=== PATIENT | female | born 1985 | race Caucasian/White ===

== ENCOUNTER → 2021-10-06 13:55 | Outpatient (BNVA) | payer MEDICAID, SELFPAY | PROVIDERS: Visit Provider Podiatrist Foot & Ankle Surgery | DX: M79.672 Pain in left foot (principal); M21.612 Bunion of left foot; M72.2 Plantar fascial fibromatosis | CPT/HCPCS: 73630; 99203 ==

== ENCOUNTER 2022-10-27 11:28 | Emergency (ER) | payer MEDICAID, SELFPAY ==
[2022-10-27 11:32] VITALS: BP 135/78; PULSE 65; RESP 15; TEMP 36.6; O2SAT 97
[2022-10-27 14:09] LABS: Basophils % 0.6 %; Eosinophils # 0.3 10^3/uL (0.0-0.8); Eosinophils % 4.9 %; Hematocrit 43.5 % (36-47); Lymphocytes % 39.3 %; Mean Corpuscular HGB Conc 32.4 g/dL (30-55); Mean Corpuscular Hemoglobin 30.4 pg (27-33); Mean Corpuscular Volume 93.8 fl (85-98); Monocytes # 0.3 10^3/uL (0.2-0.9); Monocytes % 5.7 %; Neutrophils # 2.47 10^3/uL (1.8-7.7); Neutrophils % 48.5 %; Nucleated Red Blood Cells % 0 %; Platelet Count 273 10^3/cmm (157-399); Red Blood Count 4.64 10^6/uL (3.85-5.65); Red Cell Distribution Width 11.4 % (12.1-15.1); White Blood Count 5.09 10^3/uL (3.29-11.43)
[2022-10-27 14:28] LABS: Alanine Aminotransferase 31 U/L (0-33); Albumin Level 4.4 g/dL (3.5-5.2); Alkaline Phosphatase 73 U/L (35-105); Anion Gap 13.4 (5-19); Aspartate Amino Transferase 19 U/L (0-32); Blood Urea Nitrogen 12 mg/dL (6-20); Calcium 9.2 mg/dL (8.5-10.5); Carbon Dioxide 27 mmol/L (22-29); Chloride 100 mmol/L (98-107); Creatinine Clr Calc Pharmacy 134.3799; Glomerular Filtration Rate 113.8 mL/min (90-130); Glucose 84 mg/dL (65-115); HCG, Serum Qual Negative (Negative); Lipase 64 U/L (13-60); Osmolality Calculated 281 mOsm/kg (285-295); Potassium 4.4 mmol/L (3.5-5.1); Sodium 136 mmol/L (136-145); Total Bilirubin 0.2 mg/dL (0.15-1.2); Total Protein 7.4 g/dL (6.6-8.7)
[2022-10-27] MEDS: ondansetron 2 mg/ML SDV 2 mL 4 MG IVP (15:13)
[2022-10-27] MEDS: sodium chloride 0.9% 1,000 ML 999 ML IV (15:14)
[2022-10-27 15:27] VITALS: BP 135/84; PULSE 50; RESP 16; O2SAT 100
--- NOTE | 2022-10-27 15:31 | ED_ITS ---
HPI - Abdominal Pain General: Chief Complaint: Abdominal Pain Stated Complaint: possible gallbladder issue Time Seen by Provider: 10/27/22 14:03 History of Present Illness: Patient presents to the ER with complaints of right upper quadrant pain. Patient states she has gallbladder issues and needs it out. Patient states she talk with Dr. Zeng and she just left a consult with him and he told her she needed to have her gallbladder removed VICKIE and his next date of the surgery calendar was 9 days from now and that she could not wait. She says he told her to go to the ER and still we do for her. Review of Systems General: Reports: 10 or more systems reviewed and unremarkable except in HPI and below PFSH ED PFSH: Social History Smoking and tobacco status: never smoked Physical Exam Const: COMMON NORMALS: no acute distress, average body habitus, patient oriented x3, no limitations, healthy appearing and well nourished HENMT: COMMON NORMALS: normocephalic, atraumatic, hearing grossly normal bilaterally, external ears normal, Normal external nose present and moist oral mucous membranes HEAD & SCALP: normocephalic and atraumatic NOSE: Normal external nose present EXTERNAL EAR: Yes external ears normal Eye: COMMON NORMALS: Equal, round and reactive pupils present, EOMs intact bilaterally, conjunctivae normal and no scleral icterus CONJUNCTIVA: Yes conjunctivae normal PUPIL: Yes Equal, round and reactive pupils present Neck/C-Spine: COMMON NORMALS: full ROM, no lymphadenopathy, supple, no meningeal signs, no JVD and Thyroid normal THYROID: Thyroid normal Chest: COMMONS NORMALS: normal inspection of the chest and normal palpation of entire chest wall Resp: COMMON NORMALS: normal respiratory effort, No retractions, No use of accessory muscles and clear to auscultation bilaterally AUSCULTATION: clear to auscultation bilaterally Cardio: COMMON NORMALS: no JVD, regular rate, regular rhythm, S1 normal heart sound present, S2 normal heart sound present, No gallops present (Cardio), No clicks present (Cardio), No murmurs present (Cardio) and No rub (Cardio) RATE: regular rate RHYTHM: regular rhythm HEART SOUNDS: S1 normal heart sound present and S2 normal heart sound present GI: OTHER: Tender to palpate right upper quadrant, no rebound guarding rigidity organomegaly or masses noted. Positive bowel sounds in all 4 quadrants Neuro: COMMON NORMALS: patient oriented x3 MENINGEAL SIGNS: Yes no meningeal signs Course Vital Signs: Vital signs: Vital Signs Temperature 97.9 F 10/27/22 11:32 Pulse Rate 50 L 10/27/22 15:27 Respiratory Rate 16 10/27/22 15:27 Blood Pressure 135/84 10/27/22 16:00 Pulse Oximetry 99 10/27/22 16:00 Oxygen Delivery Me thod Room Air 10/27/22 15:27 MDM - Abdominal Pain Medical Decision Making Patient presents to the ER with right upper quadrant pain and was seen by Dr. Zeng and told she needed her gallbladder out. Dr. Nova notes was reviewed with Dr. Lomas who came to the ER and evaluated the patient. He did not feel that she had an acute cholecystitis at this time and offered to see her in the clinic later on this week but they declined that and said they would just follow-up with Dr. Pearce. She will be discharged from the ER. Differential Diagnosis Likely abdominal pain; Unlikely acute appendicitis, calculus of kidney, constipation, diverticulitis, endometriosis, gastroenteritis, pancreatitis or small bowel obstruction Medical Records I reviewed the patient's medical records. Lab Data I reviewed the patient's lab results. 10/27/22 13:55 10/27/22 13:55 Labs/Radiology: Laboratory Results WBC 5.09 10^3/uL (3.29-11.43) 10/27/22 13:55 RBC 4.64 10^6/uL (3.85-5.65) 10/27/22 13:55 Hgb 14.10 g/dL (11.27-16.99) 10/27/22 13:55 Hct 43.5 % (36-47) 10/27/22 13:55 MCV 93.8 fl (85-98) 10/27/22 13:55 MCH 30.4 pg (27-33) 10/27/22 13:55 MCHC 32.4 g/dL (30-55) 10/27/22 13:55 RDW 11.4 % (12.1-15.1) L 10/27/22 13:55 Plt Count 273 10^3/cmm (157-399) 10/27/22 13:55 MPV 9.0 fL (7.4-10.4) 10/27/22 13:55 Neut % (Auto) 48.5 % 10/27/22 13:55 Lymph % (Auto) 39.3 % 10/27/22 13:55 [place] % (Auto) 5.7 % 10/27/22 13:55 Eos % (Auto) 4.9 % 10/27/22 13:55 Baso % (Auto) 0.6 % 10/27/22 13:55 Neut # (Auto) 2.47 10^3/uL (1.8-7.7) 10/27/22 13:55 Lymph # (Auto) 2.0 10^3/uL (0.8-4.8) 10/27/22 13:55 [place] # (Auto) 0.3 10^3/uL (0.2-0.9) 10/27/22 13:55 Eos # (Auto) 0.3 10^3/uL (0.0-0.8) 10/27/22 13:55 Baso # (Auto) 0.0 10^3/uL (0.0-0.1) 10/27/22 13:55 Nucleated RBC % (auto) 0 % 10/27/22 13:55 Nucleated RBCs # 0.0 /100WBC 10/27/22 13:55 Sodium 136 mmol/L (136-145) 10/27/22 13:55 Potassium 4.4 mmol/L (3.5-5.1) 10/27/22 13:55 Chloride 100 mmol/L (98-107) 10/27/22 13:55 Carbon Dioxide 27 mmol/L (22-29) 10/27/22 13:55 Anion Gap 13.4 (5-19) 10/27/22 13:55 BUN 12 mg/dL (6-20) 10/27/22 13:55 Creatinine 0.6 mg/dL (0.5-0.9) 10/27/22 13:55 GFR Calculation 113.8 mL/min (90-130) 10/27/22 13:55 Glucose 84 mg/dL (65-115) 10/27/22 13:55 Calculated Osmolality 281 mOsm/kg (285-295) L 10/27/22 13:55 Calcium 9.2 mg/dL (8.5-10.5) 10/27/22 13:55 Total Bilirubin 0.2 mg/dL (0.15-1.2) 10/27/22 13:55 AST 19 U/L (0-32) 10/27/22 13:55 ALT 31 U/L (0-33) 10/27/22 13:55 Alkaline Phosphatase 73 U/L (35-105) 10/27/22 13:55 Total Protein 7.4 g/dL (6.6-8.7) 10/27/22 13:55 Albumin 4.4 g/dL (3.5-5.2) 10/27/22 13:55 Globulin 3.0 g/dL (1.3-4.6) 10/27/22 13:55 Lipase 64 U/L (13-60) H 10/27/22 13:55 HCG, Qual Negative (Negative) 10/27/22 13:55 Urine Color Yellow (Yellow) 10/27/22 15:27 Urine Appearance Clear (CLEAR) 10/27/22 15:27 Urine pH 7 (5-7) 10/27/22 15:27 Ur Specific [place] 1.005 (1.005-1.030) 10/27/22 15:27 Urine Protein Neg (Negative) 10/27/22 15:27 Urine Glucose (UA) Norm (Normal) 10/27/22 15:27 Urine Ketones Negative (Negative) 10/27/22 15:27 Urine Blood Neg (Negative) 10/27/22 15:27 Urine Nitrate Negative (Negative) 10/27/22 15:27 Urine Bilirubin Neg (Negative) 10/27/22 15:27 Urine Urobilinogen Norm mg/dL (Negative) 10/27/22 15:27 Ur Leukocyte Esterase Trace (Negative) H 10/27/22 15:27 Urine RBC 0-4 /hpf (0-2) H 10/27/22 15:27 Urine WBC 0-4 /hpf (0-5) H 10/27/22 15:27 Ur Squamous Epith Cells 0-4 /hpf (0-5) H 10/27/22 15:27 Amorphous Sediment Not Reportable 10/27/22 15:27 Urine Bacteria None /hpf (NONE) 10/27/22 15:27 Urine Mucus 2+ /hpf 10/27/22 15:27 Discharge Plan Discharge Patient Disposition: Home Clinical Impression: Right upper quadrant abdominal pain, Biliary colic Condition: Stable Prescriptions: No Action venlafaxine 37.5 mg capsule,extended release 24hr 37.5 mg PO DAILY Enskyce 0.15-0.03 mg tablet 1 tab PO DAILY cetirizine 10 mg tablet 10 mg PO DAILY pantoprazole 40 mg tablet,delayed release (DR/EC) 40 mg PO BID ondansetron 4 mg tablet,disintegrating 4 mg PO Q6H fluticasone propionate 50 mcg/actuation spray,suspension 2 spray INTRANASAL DAILY Discharge Orders: Discharge ED (Routine); Ordered 10/27/22 Ordered By: Maikel Ron Referrals: Veronica Boykin FNP [Primary Care Provider] - 1 week Patient Instructions: Biliary Colic (ED), Abdominal Pain (ED) Activity Restrictions/Additional Instructions: Please feel free to follow-up with your family practice doctor within the next week or Dr. Wilburn for further evaluation and treatment of your right upper quadrant pain/gallbladder Coding Level of Care Code ED Personal Injury Law Specialist for Angelic Escobar
[2022-10-27 15:56] LABS: Add Urine Microscopic? YES; Bilirubin Urine Neg (Negative); Blood Urine Neg (Negative); Glucose Urine UA Norm (Normal); Ketones Urine Negative (Negative); Leukocyte Esterase Urine Trace (Negative); Nitrate Urine Negative (Negative); Protein Urine Neg (Negative); Specific Gravity, Urine 1.005 (1.005-1.030); Urine Appearance Clear (CLEAR); Urine Color Yellow (Yellow); Urobilinogen Urine Norm (Negative); pH Urine 7 (5-7)
[2022-10-27 15:58] LABS: Add Urine Culture? No; Mucus Urine 2+ /hpf; RBC Urine 0-4 /hpf (0-2); Squamous Epithelial Cell Urine 0-4 /hpf (0-5); WBC Urine 0-4 /hpf (0-5)
[2022-10-27 16:00] VITALS: BP 135/84; O2SAT 99
[2022-10-27 17:06] VITALS: BP 135/84; O2SAT 99
--- NOTE | 2022-10-27 17:08 | P.CONIM_ITS ---
Providers/Reason For Consult Consulting Physician/Specialty*: General Surgery Reason for Consult*: Abdominal pain, possible biliary disease Primary Care Provider: Veronica Boykin History of Present Illness History of Present Illness Melanie Franco is a 37 year old female who presents to our emergency department due to 14 days of symptoms concerning for biliary disease including right upper quadrant pain nausea and weakness. Per patient report about 2 weeks ago she had a very strong upper abdominal and right upper quadrant abdominal pain, she presented to emergency department, was discharged with pain medication but pain recurred. Therefore she went to her general surgeon who after evaluation and CT scan which is not available to us at the moment indicated that he sees some nonspecific gallbladder wall thickening and patient will benefit from cholecystectomy, surgeon could only do cholecystectomy 9 days after clinic visit and therefore recommended patient to visit the local emergency room if symptoms persisted. Patient at the moment only has nausea, minimal abdominal pain, no fever no chills, no other symptoms concerning for cholecystitis Review of Systems Narrative: 10 point review of systems done and negative otherwise noted in HPI Medications/Allergies Home Medications Medication Instructions Recorded Confirmed Last Taken Type cetirizine 10 mg tablet 10 mg PO DAILY 10/27/22 10/27/22 10/27/22 History desogestrel 0.15 mg-ethinyl 1 tab PO DAILY 10/27/22 10/27/22 10/27/22 History estradiol 0.03 mg tablet (Enskyce) fluticasone propionate 50 2 spray intranasal DAILY 10/27/22 10/27/22 10/27/22 History mcg/actuation nasal spray,suspension ondansetron 4 mg disintegrating 4 mg PO Q6H 10/27/22 10/27/22 Unknown History tablet pantoprazole 40 mg tablet,delayed 40 mg PO BID 10/27/22 10/27/22 10/27/22 History release venlafaxine 37.5 mg 37.5 mg PO DAILY 10/27/22 10/27/22 10/27/22 History capsule,extended release 24 hr Allergies Allergy/AdvReac Type Severity Reaction Status Date / Time Latex, Natural Rubber Allergy Intermediate ALGY-Rash Verified 10/27/22 11:36 PFSH Acute PFSH: Social History Smoking and tobacco status: never smoked Vitals/I&O/Wt Last Vital Signs Temp 97.9 F 10/27/22 11:32 Pulse 50 L 10/27/22 15:27 Resp 16 10/27/22 15:27 BP 135/84 10/27/22 16:00 Pulse Ox 99 10/27/22 16:00 O2 Del Method Room Air 10/27/22 15:27 Weight last 48 hrs Weight 170 lb Physical Exam Narrative: General : Patient is well developed , no acute distress, oriented x3 Head : Normal cephalic, a-traumatic. Nose : Mucous membranes are without erythema. Lungs : Equal chest rise bilaterally, no use of accessory muscles, trachea is midline. CV : Rate and rhythm are normal. Abdomen : Soft, ND, NT, no g/r/m, minimal tenderness in the right upper quadrant, no Agarwal sign Extremities : No edema. Upper extremities are normal bilaterally. Back : non-tender to palpation, no CVA tenderness. Data 10/27/22 13:55 10/27/22 13:55 A&P Assessment and plan (1) Biliary colic: Plan After complete history, physical examination and review of all available clinical data the following is my assessment. Patient does not meet criteria of acute cholecystitis, physical examination, chronicity of symptoms, laboratory work-up are not consistent with a diagnosis of acute cholecystitis. While patient makes Gallbladder Wall Thickening, Most Likely This Is Chronic in Nature. An Emergent Cholecystectomy Is Not Indicated at the Moment. I Explained This to the Patient and the Family Member and Offered Elective Cholecystectomy, They Were Not Completely Satisfied with Our Answer, but Stated That If That Is the Case They Will Prefer to Wait 9 Days to Have General Surgery and Who Previously Evaluated the Patient Do the Cholecystectomy. I Indicated This Is an Appropriate Option, in the Interim Patient Can Obtain Anti- Inflammatory Medications for Symptom Control. Patient will follow-up with primary surgeon. Coding Level of Care Code 52087 Diagnoses Biliary colic K80.50
== END 2022-10-27 17:14 | disposition home or self-care (01) ==
PROVIDERS: Physician Assistant; Emergency Provider Emergency Medicine; PCP Nurse Practitioner Family
DX: R10.11 Right upper quadrant pain (principal); K80.50 Calculus of bile duct without cholangitis or cholecystitis without obstruction
CPT/HCPCS: 36415; 80053; 81001; 83690; 84703; 85025; 96374; 99284; J2405; J7030

== ENCOUNTER → 2024-07-09 12:36 | Outpatient (BNVA) | payer MEDICAID, SELFPAY | PROVIDERS: PCP Nurse Practitioner Family; Visit Provider Podiatrist Foot & Ankle Surgery | DX: M65.972 Unspecified synovitis and tenosynovitis, left ankle and foot (principal); M77.42 Metatarsalgia, left foot; M79.672 Pain in left foot | CPT/HCPCS: 73630 ==